=== PATIENT | female | born 1960 | race Caucasian/White ===

== ENCOUNTER → 2020-12-22 14:49 | Outpatient (CLI) | payer OTHER, SELFPAY ==
--- NOTE | ~2020-12-22 | MM_ITS ---
EXAMINATION: MM screening [facility] BI w mitzi HISTORY: Screening mammogram TECHNIQUE: Craniocaudal and mediolateral oblique 3-D tomosynthesis images were obtained and synthetic 2-D images were generated. CAD analysis was submitted and interpreted. COMPARISON: 09/11/2018, 08/07/2017, 06/09/2016 BREAST PARENCHYMAL COMPOSITION: There are scattered areas of fibroglandular density. FINDINGS: A stable mass lower outer left breast is considered benign given the lack of interval waddell e. There is no evidence of suspicious mass, calcification, or architectural distortion to suggest mal ignancy in either breast. There has been no suspicious interval change. IMPRESSION: 1. No mammographic evidence of malignancy. 2. Recommend routine screening mammography in one year. BI-RADS Category 2: Benign finding(s). Reviewed, dictated and finalized at location A.
== END ==
PROVIDERS: Visit Provider Physician Assistant
DX: Z12.31 Encounter for screening mammogram for malignant neoplasm of breast (principal)
CPT/HCPCS: 77063; 77067

== ENCOUNTER 2021-08-22 13:41 | Emergency (ER) | payer OTHER, SELFPAY ==
[2021-08-22 13:56] VITALS: BP 150/86; PULSE 79; RESP 18; TEMP 37; O2SAT 100
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
== END 2021-08-22 14:18 | disposition home or self-care (01) ==
PROVIDERS: Emergency Provider Nurse Practitioner Family; PCP Family Medicine
DX: S16.1XXA Strain of muscle, fascia and tendon at neck level, initial encounter (principal); V49.50XA Passenger injured in collision with unspecified motor vehicles in traffic accident, initial encounter; Z86.718 Personal history of other venous thrombosis and embolism; Z86.711 Personal history of pulmonary embolism; Z79.01 Long term (current) use of anticoagulants; K21.9 Gastro-esophageal reflux disease without esophagitis; I10 Essential (primary) hypertension
CPT/HCPCS: 99213; G0463

== ENCOUNTER 2021-09-02 09:20 | Emergency (ER) | payer OTHER, SELFPAY ==
--- NOTE | ~2021-09-02 | CT_ITS ---
EXAMINATION: CT brain wo con DATE: 09/02/2021 09:50 INDICATION: Right facial droop TECHNIQUE: Computed tomography (CT) of the head was performed without intravenous contrast. Sagittal and coronal reconstructions were performed. The mA was adjusted according to patient size. Iterative reconstruction technique was employed. The dose-length product was 605.33 mGy-cm. COMPARISON: head CT dated 05/18/2018 FINDINGS: No acute intracranial hemorrhage, acute infarction or abnormal extra axial fluid collection. Ventricl es are normal and symmetric. No mass/mass effect. Mucosal thickening the small left maxillary sinus a nd complete opacification of the right maxillary sinus with thickened sclerotic baig consistent with chronic sinusitis. The orbits and mastoid air cells are normal. IMPRESSION: 1. No acute intracranial process. 2. Chronic sinusitis in the bilateral maxillary sinuses. Reviewed, dictated and finalized at location A. ENT SERVICES ADVISOR
[2021-09-02 09:24] VITALS: BP 167/100; PULSE 122; RESP 25; TEMP 36.8; O2SAT 99
--- NOTE | 2021-09-02 09:35 | ECG_ITS ---
Measurements Intervals [place] Rate: 100 P: 41 NC: 168 QRS: 15 QRSD: 100 T: -5 QT: 330 QTc: 427 Interpretive Statements SINUS TACHYCARDIA DELAYED PRECORDIAL R/S TRANSITION INFERIOR INFARCT, AGE INDETERMINATE BASELINE ARTIFACT- I, II, III, AVR, AVL, AVF, V1, V3-V6 ABNORMAL ECG Electronically Signed On 09-02-2021 9:53:27 COMMUNICATION SKILLS INSTRUCTOR by Alex Garcia D.O.
[2021-09-02 09:45] LABS: Basophils Percent Auto 0.5 % (0.2-1.2); Eosinophils Absolute Auto 0.2 K/mm3 (0-0.3); Eosinophils Percent Auto 3.2 % (0-4.4); Hematocrit 45.6 % (37.0-47.0); Hemoglobin 15.2 g/dL (12.0-15.0); Immature Granulocyte Absolute 0.01 K/mm3 (0.00-0.031); Immature Granulocyte Percent A 0.2 % (0-0.5); Lymphocytes Percent Auto 51.9 % (18.3-44.2); Mean Corpuscular HGB Conc 33.3 g/dl (32-36); Mean Corpuscular Hemoglobin 30.2 pg (26-34); Mean Corpuscular Volume 90.7 fl (80-100); Monocytes Absolute Auto 0.5 K/mm3 (0.1-0.6); Monocytes Percent Auto 8.4 % (2.6-8.5); Neutrophils Absolute Auto 2.2 K/mm3 (1.3-6.7); Neutrophils Percent Auto 35.8 % (45.5-73.1); Platelet Count Result 314 k/mm3 (150-375); Red Blood Count 5.03 M/mm3 (4.2-5.4); Red Cell Distribution Width 12.7 % (11.5-14.5); White Blood Count 6.2 K/mm3 (4.5-10.0)
--- NOTE | 2021-09-02 09:46 | PC.NURSE ---
pt to CT at this time.
[2021-09-02 09:57] LABS: Alanine Aminotransferase 21 U/L (4-35); Albumin Level 4.6 g/dL (3.5-5.1); Alkaline Phosphatase 61 U/L (38-126); Anion Gap 12 mmol/L (8-16); Aspartate Amino Transferase 29 U/L (14-36); Bilirubin,Total 0.6 mg/dL (0.2-1.3); Blood Urea Nitrogen 21 mg/dL (7-17); Calcium 9.9 mg/dL (8.4-10.2); Carbon Dioxide 27 mmol/L (22-30); Chloride 103 mmol/L (98-107); Estimated CRCL calculation 63 ml/min; Estimated Glomerular Filt Rate > 60; Glucose 112 mg/dL (65-110); Potassium 3.6 mmol/L (3.4-5.0); Sodium 142 mmol/L (137-145)
[2021-09-02 10:04] LABS: Prothrombin Time 13.1 Seconds (11.1-14.7)
[2021-09-02 10:24] LABS: Glucose Point of Care 136 mg/dl (65-105)
[2021-09-02 10:25] VITALS: BP 128/100; PULSE 81; RESP 22; O2SAT 98
[2021-09-02 10:26] VITALS: O2SAT 98
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
[2021-09-02 11:19] VITALS: BP 154/92; PULSE 80; RESP 18; O2SAT 97
== END 2021-09-02 11:21 | disposition home or self-care (01) ==
PROVIDERS: Emergency Provider General Practice; PCP Family Medicine
DX: G51.0 Bell's palsy (principal); J32.0 Chronic maxillary sinusitis; I10 Essential (primary) hypertension; K21.9 Gastro-esophageal reflux disease without esophagitis; Z86.711 Personal history of pulmonary embolism; Z79.01 Long term (current) use of anticoagulants; R00.0 Tachycardia, unspecified; R94.31 Abnormal electrocardiogram [ECG] [EKG]
CPT/HCPCS: 36415; 70450; 80053; 82948; 85025; 85610; 85730; 93005; 99284

== ENCOUNTER → 2021-11-07 14:24 | Outpatient (CLI) | payer OTHER, SELFPAY ==
--- NOTE | ~2021-11-07 | US_ITS ---
EXAMINATION: US transvaginal DATE: 11/07/2021 14:51 INDICATION: Uterine fibroids. TECHNIQUE: Multiple transvaginal sonographic images of the pelvis were obtained. COMPARISON: MRI 08/07/2017 FINDINGS: The uterus measures 6.3 x 3.1 x 3.5 cm. There is no free fluid in the pelvis. The endometrial complex measures 4 mm in thickness. There is a 4.6 cm subserosal fibroid involving the lower uterine segment and cervix on the right. There is an 11 mm intramural fibroid. There is a 1.8 cm subserosal fibroid on the left anteriorly. The ovaries are not visualized. IMPRESSION: 1. Uterine fibroids. 2. Ovaries not visualized. Reviewed, dictated and finalized at location D.
== END ==
DX: D25.9 Leiomyoma of uterus, unspecified (principal)
CPT/HCPCS: 76830

== ENCOUNTER → 2022-01-02 11:08 | Outpatient (CLI) | payer OTHER, SELFPAY ==
--- NOTE | ~2022-01-02 | MM_ITS ---
EXAMINATION: MM screening [facility] BI w mitzi HISTORY: Screening TECHNIQUE: Craniocaudal and mediolateral oblique 3-D tomosynthesis images were obtained and synthetic 2-D images were generated. CAD analysis was submitted and interpreted. COMPARISON: Comparison to multiple prior studies sequentially, with oldest reviewed study dated 06/08. BREAST PARENCHYMAL COMPOSITION: There are scattered areas of fibroglandular density. FINDINGS: There is no evidence of suspicious mass, calcification, or architectural distortion to sugg est malignancy in either breast. There has been no suspicious interval change. IMPRESSION: 1. No mammographic evidence of malignancy. 2. Recommend routine screening mammography in one year. BI-RADS Category 1: Negative Reviewed, dictated and finalized at location A.
== END ==
PROVIDERS: PCP Physician Assistant; Visit Provider Physician Assistant
DX: Z12.31 Encounter for screening mammogram for malignant neoplasm of breast (principal)
CPT/HCPCS: 77063; 77067

== ENCOUNTER → 2022-08-10 14:12 | Outpatient (CLI) | payer OTHER, SELFPAY ==
--- NOTE | ~2022-08-10 | DEXA_ITS ---
Bone Density Report Name: HUYEN LOMBARDI Age: 62 Sex: Female Ethnicity: White Date of : 1960 Indication: postmenopausal; screening for osteoporosis; Referring Provider: Rita Bennett Study: Bone densitometry was performed. Exam Date: August 10, 2022 Accession number: [id number] Bone Density: Region BMD T-score Z-score Classification AP Spine (L1-L4) 1.025 -0.2 1.4 Normal Femoral Neck (Left) 0.735 -1.0 0.3 Normal Total Hip (Left) 0.958 0.1 1.2 Normal Femoral Neck (Right) 0.735 -1.0 0.3 Normal Total Hip (Right) 0.923 -0.2 0.9 Normal Total Hip Mean 0.941 -0.1 1.1 Normal World Health Organization criteria for BMD impression classify patients as: Normal (T-score at or above -1.0), Osteopenia (T-score between -1.0 and -2.5), or Osteoporosis (T-score at or below -2.5). 10-year Fracture Risk: FRAX not reported because: All T-scores for Spine Total, Hip Total, Femoral Neck at or above -1.0 Previous Exams: Region Exam Age BMD T-score BMD Change BMD Change Date g/cm2 vs Baseline vs Previous AP Spine(L1-L4) 08/10/2022 62 1.025 -0.2 0.055* 0.055* 08/07/2017 57 0.970 -0.7 Total Hip(Left) 08/10/2022 62 0.958 0.1 0.033* 0.033* 08/07/2017 57 0.925 -0.1 Total Hip(Right) 08/10/2022 62 0.923 -0.2 0.038* 0.038* 08/07/2017 57 0.885 -0.5 *Denotes significance at 95% confidence level, LSC for AP Spine = 0.022 g/cm2, LSC for Total Hip = 0.027 g/cm2 Clinical Information Provided by Patient: Has used the following medications: HRT (i.e. estrogen/hormone therapy), Vitamin D Patient maximum height was 67 Menopause Age: 53 Drinks caffeinated beverages Onset of menses at age 13 Number of children 2 Impression: The patient has normal bone mass. No significant bone loss was observed. Discussion: BONE DENSITY IS ABOVE THE MINIMUM DESIRABLE LEVEL AT ALL SKELETAL SITES TESTED. This patient?s bone mineral density is above the minimum desirable level (T-score -1.0 or better) at all sites measured. The patient should follow a healthful lifestyle (good nutrition with adequate calcium and vitamin D, and appropriate weight-bearing exercise). Follow-Up: Consider repeating this study in 5 years or sooner if there is some new clinical indication. Reported by: HARLAN on 08/10/2022 2:29:00 PM. Reviewed, dictated and finalized at location A.
== END ==
PROVIDERS: PCP Physician Assistant; Visit Provider Physician Assistant
DX: Z13.820 Encounter for screening for osteoporosis (principal); Z78.0 Asymptomatic menopausal state
CPT/HCPCS: 77080

== ENCOUNTER 2022-10-14 14:25 | Emergency (ER) | payer OTHER, SELFPAY ==
[2022-10-14 14:34] VITALS: BP 148/87; PULSE 90; RESP 18; TEMP 36.9; O2SAT 97
--- NOTE | 2022-10-14 15:33 | ED.URI ---
HPI - URI/Sore Throat General Chief Complaint: Upper Respiratory Infection Stated Complaint: Sore Throat,Lt Ear Irritation Time Seen by Provider: 10/14/22 15:23 Source: patient Mode of arrival: ambulatory Limitations: no limitations History of Present Illness HPI Narrative: Patient presents today complaining of a sore throat and left ear pain since last night. Denies cough, congestion, rhinorrhea, fever, or any additional symptoms. She currently rates her pain 5/10 and has been taking Tylenol with some relief. Related Data Allergies Allergy/AdvReac Type Severity Reaction Status Date / Time clarithromycin AdvReac Severe SWOLLEN Verified 10/14/22 14:48 TONGUE Review of Systems Review of Systems: CONSTITUTIONAL: Denies body aches, fever, chills, or sweats. EYES: Denies visual changes, redness, or discharge. ENT: Denies rhinorrhea, congestion. + sore throat, left ear pain CARDIOVASCULAR: Denies chest pain, palpitations, or edema. RESPIRATORY: Denies cough or dyspnea. GASTROINTESTINAL: Denies abdominal pain, nausea, vomiting, or diarrhea. GENITOURINARY: Denies dysuria or hematuria. SKIN: Denies rash, itching, or wounds. MUSCULOSKELETAL: Denies back pain, joint pain, or myalgia. NEUROLOGIC: Denies headache, numbness, tingling, or weakness. PSYCH: Denies depression or anxiety. [facility] Past Medical History Medical History Chronic anticoagulation Generalized anxiety disorder GERD (gastroesophageal reflux disease) History of pulmonary embolism Hypertension Postmenopausal Surgical History Surgical History H/O inguinal hernia repair (~2018) History of cholecystectomy (~2017) Family History Family History Father Hypertension Family history of cardiovascular disease Mother Hypertension Diabetes mellitus Family history of cardiovascular disease Other Family history of malignant neoplasm of breast Social History Social History Smoking status: Never smoker Second hand tobacco smoke exposure: No Alcohol intake: never Substance use type: does not use Comments At time of signature, I have reviewed and agree with nursing past medical, surgical, social and family history unless otherwise noted. Please see nursing chart for further information. There is no relevant family history pertinent to the presenting complaint Exam Narrative: GENERAL: Well-appearing, well-nourished, and in no acute distress. HEAD: Normocephalic, atraumatic. EYES: EOMI. No redness or drainage. Conjunctivae normal. ENT: Mucous membranes pink and moist. Nares clear. No rhinorrhea. Right cerumen impaction. Left TM with mild serous effusion without evidence of bacterial infection. Throat normal. Uvula midline. NECK: Normal AROM. Supple. No lymphadenopathy. CHEST: No respiratory distress. Clear to auscultation. HEART: Regular rate and rhythm. No murmur appreciated. Normal peripheral pulses. EXTREMITIES: Normal range of motion. No edema. SKIN: Warm, dry, no rash. Capillary refill normal. Normal skin turgor. NEURO: No focal deficits. Alert and oriented x3. Gait steady. PSYCH: Normal affect. No signs of depression or anxiety. Course Course Level of Care: Express Care Visit Vital Signs Vital signs: Vital Signs Temperature 98.5 F 10/14/22 14:34 Pulse Rate 90 10/14/22 14:34 Respiratory Rate 18 10/14/22 14:34 Blood Pressure 148/87 H 10/14/22 14:34 Pulse Oximetry 97 10/14/22 14:34 Oxygen Delivery Room Air 10/14/22 14:34 Temperature 98.5 F 10/14/22 14:34 Pulse Rate 90 10/14/22 14:34 Respiratory Rate 18 10/14/22 14:34 Blood Pressure 148/87 H 10/14/22 14:34 Pulse Oximetry 97 10/14/22 14:34 Oxygen Delivery Room Air 10/14/22 14:34 Reviewed. Pt has
== END 2022-10-14 15:39 | disposition home or self-care (01) ==
PROVIDERS: Emergency Provider Nurse Practitioner; PCP Physician Assistant
DX: H65.02 Acute serous otitis media, left ear (principal); K21.9 Gastro-esophageal reflux disease without esophagitis; I10 Essential (primary) hypertension; F41.1 Generalized anxiety disorder; Z86.711 Personal history of pulmonary embolism; Z79.01 Long term (current) use of anticoagulants
CPT/HCPCS: 99211; G0463

== ENCOUNTER → 2023-03-21 13:46 | Outpatient (CLI) | payer OTHER, SELFPAY ==
--- NOTE | ~2023-03-21 | MM_ITS ---
EXAMINATION: MM screening [facility] BI w mitzi HISTORY: Screening mammogram TECHNIQUE: Craniocaudal and mediolateral oblique 3-D tomosynthesis images were obtained and synthetic 2-D images were generated. CAD analysis was submitted and interpreted. COMPARISON: 01/02/2022, 12/22/2020, 09/11/2018 bilateral screening mammogram examinations BREAST PARENCHYMAL COMPOSITION: There are scattered areas of fibroglandular density. FINDINGS: Chronic circumscribed low-density opacity is noted in the subareolar area of the left breas t approximately 2.4 cm deep to the nipple. This measures approximately 8 mm currently, relatively unc hanged since 08/07/2017. The low-density and circumscribed margins and relative stability in size comp ared to 2018 are consistent with benign process. There is no evidence of suspicious mass, calcification, or architectural distortion to suggest malign eve in either breast. There has been no suspicious interval change. IMPRESSION: 1. No mammographic evidence of malignancy. 2. Recommend routine screening mammography in one year. BIRADS Category 2: Benign Reviewed, dictated and finalized at location A.
== END ==
PROVIDERS: PCP Family Medicine; Visit Provider Family Medicine
DX: Z12.31 Encounter for screening mammogram for malignant neoplasm of breast (principal)
CPT/HCPCS: 77063; 77067

== ENCOUNTER 2024-03-27 11:26 | Outpatient (CLI) | payer OTHER, SELFPAY ==
--- NOTE | ~2024-03-27 | MM_ITS ---
EXAMINATION: MM screening [facility] BI w mitzi HISTORY: Screening mammogram TECHNIQUE: Craniocaudal and mediolateral oblique 3-D tomosynthesis images were obtained and synthetic 2-D images were generated. CAD analysis was submitted and interpreted. COMPARISON: 03/21/2023, 01/02/2022, 12/22/2020 BREAST PARENCHYMAL COMPOSITION:Not Dense. There are scattered areas of fibroglandular density. FINDINGS: Stable left breast mass in the outer subareolar region. No suspicious mass, calcification, or architectural distortion are identified in either breast to suggest malignancy. There has been no suspicious interval change. IMPRESSION: No mammographic evidence of malignancy. Recommend routine screening mammography in one year. BI-RADS Category 2: Benign finding(s). Reviewed, dictated and finalized at [facility].
== END 2024-03-27 11:27 | disposition home or self-care (01) ==
LOC: MICIMG 11:27
PROVIDERS: PCP Family Medicine; Visit Provider Nurse Practitioner Family
DX: Z12.31 Encounter for screening mammogram for malignant neoplasm of breast (principal)
CPT/HCPCS: 77063; 77067

== ENCOUNTER 2024-06-23 09:51 | Outpatient (CLI) | payer OTHER, SELFPAY ==
--- NOTE | ~2024-06-23 | XR_ITS ---
XR foot RT 2V Ordering provider: JW Forbes History: . M79.561 - Pain in right foot . Comparison: None. FINDINGS: BONES: No acute fracture or dislocation. Calcaneus spur. JOINT SPACES: Proximal and distal interphalangeal joint narrowing. No tarsal coalition. SOFT TISSUES: Normal. IMPRESSION: No acute osseous abnormality of the right foot. Reviewed, dictated and finalized at location A. R COATING HAND
--- NOTE | ~2024-06-23 | XR_ITS ---
XR foot LT 2V Ordering provider: JW Forbes History: . M79.131 - Pain in right foot . Comparison: None. FINDINGS: BONES: No acute fracture or dislocation. Calcaneus spur. JOINT SPACES: Narrowing of the proximal and distal interphalangeal joint. No tarsal coalition. SOFT TISSUES: Normal. IMPRESSION: No acute osseous abnormality left foot. Reviewed, dictated and finalized at location A. CONSULTANT
== END 2024-06-23 09:52 | disposition home or self-care (01) ==
LOC: MICIMG 09:52
PROVIDERS: PCP Family Medicine; Visit Provider Nurse Practitioner Family
DX: M79.671 Pain in right foot (principal); M79.672 Pain in left foot
CPT/HCPCS: 73620

== ENCOUNTER 2025-03-30 12:20 | Outpatient (CLI) | payer OTHER, SELFPAY ==
--- NOTE | ~2025-03-30 | MM_ITS ---
EXAMINATION: MM screening [facility] BI w mitzi HISTORY: Screening TECHNIQUE: Craniocaudal and mediolateral oblique 3-D tomosynthesis images were obtained and synthetic 2-D images were generated. CAD analysis was submitted and interpreted. COMPARISON: Comparison to multiple prior studies sequentially, with oldest reviewed study dated , 12/22/2020 BREAST PARENCHYMAL COMPOSITION: There are scattered areas of fibroglandular density. FINDINGS: There is no evidence of suspicious mass, calcification, or architectural distortion to suggest malignancy in either breast. IMPRESSION: 1. No mammographic evidence of malignancy. 2. Recommend routine screening mammography in one year. BI-RADS Category 1: Negative Reviewed, dictated and finalized at location B.
== END 2025-03-30 12:21 | disposition home or self-care (01) ==
PROVIDERS: PCP Obstetrics & Gynecology; Visit Provider Family Medicine
DX: Z12.31 Encounter for screening mammogram for malignant neoplasm of breast (principal)
CPT/HCPCS: 77063; 77067